=== PATIENT | male | born 2005 | race Hispanic/Latino ===

== ENCOUNTER → 2025-05-13 | Day surgery (SDC) | payer OTHER, BC ==
[~2025-05-13] MED LIST: ACETAMINOPHEN 1000 MG/100 ML 100 ML IV ONE; BUSPIRONE HCL15 MG PO; BUSPIRONE HCL5 MG PO; DEXAMETHASONE SOD PHOS INJ 4 MG/ML SDV ONE; FENTANYL CITRATE/PF 100MCG/2 ML INJ ONE; LIDOCAINE HCL 2% LOCAL INJ 5 ML SDV VIAL INJ ONE; MIDAZOLAM HCL 2 MG/2 ML VIAL ONE; ONDANSETRON HCL INJ 2MG/ML 2ML 2 MG/ML VIAL ONE; PROPOFOL IV EMULSION 10 MG/ML 20 ML VIAL ONE; ROCURONIUM BROMIDE 1 ML IV ONE; SEVOFLURANE INHAL SOLN 250 ML PEN BTL ONE; SUGAMMADEX SODIUM 200 MG/2 ML VIAL IV ONE
[2025-05-13] MEDS: ALBUTEROL/IPRATROPIUM 3 ML NEB ONE (08:02)
[2025-05-13] MEDS: MEPERIDINE HCL INJ 25 MG/ML VIAL ONE (08:04)
[2025-05-13 08:30] VITALS: TEMP 97.2
[2025-05-13 09:00] VITALS: BP 145/87; PULSE 74; RESP 18; O2SAT 99
[2025-05-13] MEDS: LACTATED RINGER'S 1,000 ML ONE (11:35)
[2025-05-13] MEDS: CEFAZOLIN SODIUM 2 GM ONE (11:36)
== END | disposition home or self-care (01) ==
LOC: OR 05:37
PROVIDERS: ATTEND Podiatrist Foot & Ankle Surgery
DX: M62.462 Contracture of muscle, left lower leg (principal); J45.909 Unspecified asthma, uncomplicated; F17.290 Nicotine dependence, other tobacco product, uncomplicated
CPT/HCPCS: 27687; J0131; J1100; J2003; J2175; J2250; J2405; J2704; J3010; J7121